=== PATIENT | male | born 1950 | race Hispanic/Latino ===

== ENCOUNTER 2016-07-31 10:41 | Outpatient (CLI) | payer BC ==
[2016-07-31 11:18] LABS: Anion Gap 16 mmol/L; BUN/Creatinine Ratio 17.77; Blood Urea Nitrogen 16 mg/dL (9-20); Calcium 9.1 mg/dL (8.4-10.2); Carbon Dioxide 25 mmol/L (22-30); Chloride 99.4 mmol/L (98-107); Glucose 99 mg/dL (75-100); Sodium 136 mmol/L (137-145)
[2016-07-31 11:38] LABS: Bilirubin,Urine NEG (Negative); Blood,Urine NEG (Negative); Ketones,Urine NEG (Negative); Leukocyte Esterase,Urine NEG (Negative); Mucus,Urine FEW /HPF; Nitrite,Urine NEG (Negative); Protein,Urine <15 mg/dL mg/dL (Negative); Urobilinogen,Urine < 2.0 mg/dL (<2.0); WBC,Urine < 1.0 /HPF (0.0-6.0)
== END 2016-07-31 10:42 | disposition home or self-care (01) ==
LOC: LAB 10:41
PROVIDERS: ATTEND Urology
DX: N40.1 Benign prostatic hyperplasia with lower urinary tract symptoms (principal); R39.12 Poor urinary stream; Z85.51 Personal history of malignant neoplasm of bladder
CPT/HCPCS: 36415; 80048; 81001; 84153

== ENCOUNTER 2017-06-22 10:30 | Outpatient (CLI) | payer BC ==
[2017-06-22 11:07] LABS: Alanine Aminotransferase 17 units/L (7-56); Albumin 4.2 g/dL (3.9-5); BUN/Creatinine Ratio 15; Blood Urea Nitrogen 15 mg/dL (9-20); Calcium 9.1 mg/dL (8.4-10.2); Hemolysis Index 7
== END 2017-06-22 10:31 | disposition home or self-care (01) ==
LOC: LAB 10:30
PROVIDERS: ATTEND Urology
DX: N40.1 Benign prostatic hyperplasia with lower urinary tract symptoms (principal); R39.12 Poor urinary stream; I10 Essential (primary) hypertension; Z85.51 Personal history of malignant neoplasm of bladder
CPT/HCPCS: 36415; 80053; 88112

== ENCOUNTER 2017-06-23 06:41 | Outpatient (CLI) | payer BC ==
--- NOTE | 2017-06-23 08:03 | XRay Report ---
CHEST TWO VIEWS: 06/23/17 06:41:00 CLINICAL: History of malignant neoplasm bladder. COMPARISON: 05/27/17 FINDINGS: Normal heart and pulmonary vasculature. The lungs are normally expanded and clear. No pulmonary nodule or mass. No pleural effusion. Degenerative change in the spine. IMPRESSION: No acute cardiopulmonary process and no evidence of metastatic disease.
--- NOTE | 2017-06-23 14:42 | Cat Scan Report ---
FINAL REPORT EXAM: CT ABDOMEN PELVIS WO/W CON HISTORY: HISTORY OF MALIGNANT NEOPLASM OF BLADDER TECHNIQUE: CT of the abdomen and pelvis without and with IV contrast. Coronal and sagittal reconstructed imaging provided. PRIORS: CT abdomen pelvis June 18, 2015. FINDINGS: ABDOMEN: 4 mm lesion in the left liver on series 4:27 and 5.5 mm subcapsular lesion in the left liver on series 4:34 are unchanged compared the prior in too small to accurately characterize. Heterogeneous low-attenuation liver may represent fatty infiltration or hepatocellular disease. No abnormal enhancement identified. Gallbladder, stomach, spleen, pancreas, and adrenals are unremarkable. Kidneys: Symmetrical cortical enhancement. Subcentimeter hypodensities in both kidneys statistically likely represent cysts but are too small to accurately characterize. More notable cystic lesion in the upper pole of the left kidney is unchanged in size compared to the prior. No hydronephrosis. No nephroureteral stones. No suspicious enhancing lesions. Symmetrical excretion identified. The visualized portions of the ureters are unremarkable. No distinct lesions or abnormal deviations. No dilatation or hydro ureter. IVC is intact. Moderate aortic atherosclerotic disease. No aneurysm. No dissection. No periaortic or retroperitoneal mass or adenopathy. [id number] stool throughout the colon. No wall thickening or inflammatory changes. Sigmoid anastomosis. Terminal ilium is unremarkable. Appendix is normal. Small bowel loops are unremarkable. No obstructive pattern. No free air. No free fluid. Surgical artifacts at the anterior abdominal wall may represent previous hernia repair. Diastasis recti with a broad-based protrusion and superimposed fat containing umbilical hernia. No strangulation. Mesentery is unremarkable. PELVIS: Partially distended bladder is not well evaluated. Series 4:160 in series 6:79 demonstrates a focal area of wall thickening at the anterior bladder wall which is slightly lobulated. Maximal thickness measures 7.2 mm. This was not evident on the prior. Slight irregularity to the wall could be related to incomplete distention. After the presence of contrast no filling defects are noted within the posterior bladder. Heterogeneous enlarged prostate with calcifications is unchanged compared to prior. No pelvic mass or adenopathy. Inguinal regions are unremarkable. Bones: No suspicious osseous lesions on this limited examination of the skeleton. Metastatic disease better evaluated with bone scan. Degenerative changes are in the spine. IMPRESSION: Stable nonspecific hepatic lesions. Hepatocellular disease versus fatty infiltration of the liver. Probable bilateral renal cysts. Similar to prior. Irregularity and slightly asymmetrical bladder or wall thickening. Findings could be related to incomplete distention. Differential diagnosis includes cystitis, bladder outlet obstruction, or tumor. Air CT cystoscopy or cystoscopy may be helpful clinically indicated. Enlarged heterogeneous prostate. Correlation with PSA is recommended if clinically indicated.
== END 2017-06-23 06:42 | disposition home or self-care (01) ==
LOC: CT 06:41
PROVIDERS: ATTEND Urology
DX: K42.9 Umbilical hernia without obstruction or gangrene (principal); N40.0 Benign prostatic hyperplasia without lower urinary tract symptoms; N42.89 Other specified disorders of prostate; K76.9 Liver disease, unspecified; K63.89 Other specified diseases of intestine; I70.0 Atherosclerosis of aorta; M47.894 Other spondylosis, thoracic region; R35.0 Frequency of micturition; Z85.51 Personal history of malignant neoplasm of bladder
CPT/HCPCS: 71046; 74178; Q9967

== ENCOUNTER 2017-08-18 12:13 | Outpatient (CLI) | payer BC ==
[2017-08-18 12:45] LABS: Mean Corpuscular HGB Conc 36 % (32-34); Mean Corpuscular Hemoglobin 32 pg (28-32); Mean Corpuscular Volume 88 fl (84-94); Platelet Count 286 K/mm3 (140-440); Red Blood Count 4.93 M/mm3 (3.65-5.03); Red Cell Distribution Width 12.7 % (13.2-15.2)
[2017-08-18 12:52] LABS: Hematocrit 43.5 % (35.5-45.6); Hemoglobin 15.5 gm/dl (11.8-15.2)
[2017-08-18 13:00] LABS: Alanine Aminotransferase 37 units/L (7-56); Albumin 4.1 g/dL (3.9-5); BUN/Creatinine Ratio 21; Blood Urea Nitrogen 19 mg/dL (9-20); Calcium 9.6 mg/dL (8.4-10.2); Hemolysis Index 12
== END 2017-08-18 12:14 | disposition home or self-care (01) ==
LOC: LAB 12:13
PROVIDERS: ATTEND Family Medicine
DX: I10 Essential (primary) hypertension (principal); T14.8XXA Other injury of unspecified body region, initial encounter; Z87.891 Personal history of nicotine dependence
CPT/HCPCS: 36415; 80053; 85027; 87476

== ENCOUNTER 2017-08-31 08:07 | Outpatient (CLI) | payer BC ==
[2017-08-31 08:31] LABS: Basophils % (Auto) 0.6 % (0.0-1.8); Eosinophils # (Auto) 0.1 K/mm3 (0.0-0.4); Eosinophils % (Auto) 1.7 % (0.0-4.3); Hematocrit 42.2 % (35.5-45.6); Hemoglobin 14.8 gm/dl (11.8-15.2); Lymphocytes # (Auto) 1.8 K/mm3 (1.2-5.4); Lymphocytes % (Auto) 25.9 % (13.4-35.0); Mean Corpuscular HGB Conc 35 % (32-34); Mean Corpuscular Hemoglobin 31 pg (28-32); Mean Corpuscular Volume 89 fl (84-94); Monocytes # (Auto) 0.6 K/mm3 (0.0-0.8); Monocytes % (Auto) 8.8 % (0.0-7.3); Platelet Count 186 K/mm3 (140-440); Red Blood Count 4.77 M/mm3 (3.65-5.03)
== END 2017-08-31 08:08 | disposition home or self-care (01) ==
LOC: LAB 08:07
DX: D72.829 Elevated white blood cell count, unspecified (principal); Z87.891 Personal history of nicotine dependence; I10 Essential (primary) hypertension; E66.9 Obesity, unspecified
CPT/HCPCS: 36415; 85025

== ENCOUNTER 2017-10-19 06:28 | Outpatient (CLI) | payer BC ==
[2017-10-19 07:24] LABS: Alanine Aminotransferase 17 units/L (7-56); Albumin 4.1 g/dL (3.9-5); BUN/Creatinine Ratio 14; Blood Urea Nitrogen 13 mg/dL (9-20); Calcium 9.1 mg/dL (8.4-10.2); Chol/HDL Ratio 4.26 %; HDL Cholesterol 38 mg/dL (40-59); Hemolysis Index 7; LDL Cholesterol,Direct 113 mg/dL (50-130)
[2017-10-19 11:42] LABS: Creatinine,Urine 296.1 mg/dL (0.1-20.0); Microalbumin/Creatinine Ratio 7.7 ug/mg
== END 2017-10-19 06:29 | disposition home or self-care (01) ==
LOC: LAB 06:28
PROVIDERS: ATTEND Family Medicine
DX: I10 Essential (primary) hypertension (principal); E78.5 Hyperlipidemia, unspecified; R73.9 Hyperglycemia, unspecified; Z87.891 Personal history of nicotine dependence
CPT/HCPCS: 36415; 80053; 80061; 82043; 83036

== ENCOUNTER 2017-11-24 07:43 | Outpatient (CLI) | payer BC | END 2017-11-24 07:44 | disposition home or self-care (01) | LOC: LAB 07:43 | PROVIDERS: ATTEND Family Medicine | DX: R73.9 Hyperglycemia, unspecified (principal); I10 Essential (primary) hypertension; E66.9 Obesity, unspecified; Z87.891 Personal history of nicotine dependence | CPT/HCPCS: 36415; 83036 ==

== ENCOUNTER 2018-04-08 06:27 | Day surgery (SDC) | payer BC ==
[2018-04-08] MEDS ORDERED: ANCEF/STERILE WATER 2 GM/20 ML IV NR (07:00)
== END 2018-04-08 06:28 | disposition home or self-care (01) ==
LOC: OR 06:27
PROVIDERS: ATTEND Orthopaedic Surgery
DX: G56.02 Carpal tunnel syndrome, left upper limb (principal); I10 Essential (primary) hypertension; E66.9 Obesity, unspecified; Z68.39 Body mass index [BMI] 39.0-39.9, adult; Z53.8 Procedure and treatment not carried out for other reasons; Z87.891 Personal history of nicotine dependence; Z79.899 Other long term (current) drug therapy; Z72.89 Other problems related to lifestyle; Z79.01 Long term (current) use of anticoagulants; Z85.038 Personal history of other malignant neoplasm of large intestine

== ENCOUNTER 2018-04-15 09:34 | Day surgery (SDC) | payer BC ==
[~2018-04-15 09:34] MED LIST: ANCEF/STERILE WATER 2 GM/20 ML IV NR
[2018-04-15] MEDS ORDERED: VERSED ONE (10:18)
[2018-04-15] MEDS ORDERED: LACTATED RINGERS 1,000 ML ONE (10:19)
[2018-04-15] MEDS ORDERED: NEURONTIN ONE (10:19)
[2018-04-15] MEDS ORDERED: MARCAINE 0.5% INFILTRATI ONE (12:44)
[2018-04-15] MEDS ORDERED: DILAUDID ONE ×2 (12:58→14:03)
[2018-04-15] MEDS ORDERED: XYLOCAINE MPF 2% ONE (12:59)
[2018-04-15] MEDS ORDERED: DIPRIVAN 10 MG/ML IV ONE (12:59)
[2018-04-15] MEDS ORDERED: MARCAINE 0.25% INFILTRATI ONE ×2 (13:22)
[2018-04-15] MEDS ORDERED: NACL 0.9% IR ONE (13:23)
[2018-04-15] MEDS ORDERED: TORADOL ONE (13:36)
[2018-04-15] MEDS ORDERED: ZOFRAN ONE (13:36)
[2018-04-15] MEDS ORDERED: DILAUDID IV PRN (13:59)
[2018-04-15] MEDS ORDERED: PERCOCET 5/325 PO PRN (13:59)
[2018-04-15] MEDS ORDERED: ZOFRAN IV PRN (13:59)
[2018-04-15] MEDS ORDERED: PHENERGAN PO PRN (13:59)
[2018-04-15] MEDS ORDERED: LACTATED RINGERS 1,000 ML IV SCH (14:00)
--- NOTE | 2018-04-15 14:09 | Procedure Note ---
Date of procedure: 04/15/18 Pre-op diagnosis: left carpal tunnel syndrome Post-op diagnosis: same Procedure: left endoscopic carpal tunnel release Procedure The patient was brought to the OR after being given a scalene nerve block and preoperative holding that he was placed on the OR table supine following this the left upper extremity was prepped and draped in the usual sterile manner. A timeout procedure was done to identify the patient and the correct operative site.The left arm was then exsanguinated followed by inflation of the pneumatic tourniquet to 250 mmHg. A volar incision was made along the distal wrist crease using magnification and the incision was taken down through skin and subcutaneoussuperficial flexor sheath was identified using a synovial black top spreader machine operator as well as tissue dilators the carpal canal was entered next the arthroscope was inserted with the wrist in maximum dorsiflexion the transverse carpal ligament was seen the distal extent was appreciated E arthroscope in line with the fourth metacarpal the knife blade assembly was elevated and the transverse carpal ligament was released from distal to proximal the arthroscope was then reinserted the ligament appeared to be released completely following this the scope was then removed the incision was repaired routine postop dressings were applied patient tolerated procedure note there were no complications and was taken to postanesthesia recovery in stable condition Anesthesia: MAC Surgeon: SHAJI ANDERSON Die Stamping Press Operator: ALTAF KITCHEN Estimated blood loss: minimal Pathology: none Condition: stable Disposition: PACU
[2018-04-15] MEDS: DILAUDID IV PRN ×2 (14:17→14:25)
--- NOTE | 2018-04-15 14:25 | Anesthesia Day of Surgery ---
Anesthesia Day of Surgery - Day of Surgery Patient Examined: Yes Patient H&P Reviewed: Yes Patient is NPO: Yes
--- NOTE | 2018-04-15 14:25 | Anesthesia Consultation ---
Anesthesia Consult and Med Hx Date of service: 04/15/18 - Airway Anesthetic Teeth Evaluation: Poor ROM Head & Neck: Adequate Mental/Hyoid Distance: Adequate Mallampati Class: Class III Intubation Access Assessment: Possibly Difficult - Pulmonary Exam CTA: Yes - Cardiac Exam Cardiac Exam: RRR - Pre-Operative Health Status ASA Pre-Surgery Classification: ASA3 Proposed Anesthetic Plan: General (DARREL, HTN, DM) - Pulmonary Hx Smoking: Yes (STOPPED 1995- 1/2PPD X 31 YRS) Hx Sleep Apnea: No (DARREL PRE SCREEN HIGH RISK.) - Cardiovascular System Hx Hypertension: (X 12 YRS) Hx Heart Attack/AMI: No - Central Nervous System Hx Seizures: No CVA: No Hx Psychiatric Problems: No - Endocrine Hx Renal Disease: No Hx Liver Disease: No Hx Thyroid Disease: No Hx Hypothyroidism: No - Other Systems Hx Alcohol Use: Yes (2 BEERS QD) Hx Cancer: Yes (COLORECTAL AND BLADDER IN 2012) Hx Obesity: Yes (morbid, BMI 39.9)
--- NOTE | 2018-04-15 14:31 | Post Anesthesia Evaluation ---
- Post Anesthesia Evaluation Patient Participated: Yes Airway Patent: Yes Stable Respiratory Function: Yes Nausea/Vomiting: No Temp > 96.8F: Yes Pain Manageable: Yes Adequeate Hydration: Yes Anesthesia Complications: No
[2018-04-15 15:27] VITALS: BP 102/50
== END 2018-04-15 15:40 | disposition home or self-care (01) ==
LOC: OR 09:34
PROVIDERS: ATTEND Orthopaedic Surgery
DX: G56.02 Carpal tunnel syndrome, left upper limb (principal); I10 Essential (primary) hypertension; E11.9 Type 2 diabetes mellitus without complications; G47.33 Obstructive sleep apnea (adult) (pediatric); E66.01 Morbid (severe) obesity due to excess calories; Z68.39 Body mass index [BMI] 39.0-39.9, adult; Z79.899 Other long term (current) drug therapy; Z72.89 Other problems related to lifestyle; Z87.891 Personal history of nicotine dependence; Z85.51 Personal history of malignant neoplasm of bladder; Z85.038 Personal history of other malignant neoplasm of large intestine; Z98.890 Other specified postprocedural states
CPT/HCPCS: 29848; 82962; J0690; J1170; J1885; J2250; J2405; J2704; J7120

== ENCOUNTER 2018-07-27 06:23 | Outpatient (CLI) | payer BC ==
[2018-07-27 07:27] LABS: Alanine Aminotransferase 19 units/L (7-56); Albumin 4.3 g/dL (3.9-5); BUN/Creatinine Ratio 13; Blood Urea Nitrogen 13 mg/dL (9-20); Calcium 8.8 mg/dL (8.4-10.2); Hemolysis Index 28
== END 2018-07-27 06:24 | disposition home or self-care (01) ==
LOC: LAB 06:23
PROVIDERS: ATTEND Urology
DX: N40.1 Benign prostatic hyperplasia with lower urinary tract symptoms (principal); R39.12 Poor urinary stream; Z85.51 Personal history of malignant neoplasm of bladder
CPT/HCPCS: 36415; 80053; 84153; 88112

== ENCOUNTER 2018-09-06 06:26 | Outpatient (CLI) | payer BC ==
[2018-09-06 07:07] LABS: Hematocrit 43.1 % (35.5-45.6); Hemoglobin 15.2 gm/dl (11.8-15.2); Mean Corpuscular HGB Conc 35 % (32-34); Mean Corpuscular Volume 90 fl (84-94); Platelet Count 215 K/mm3 (140-440); Red Blood Count 4.78 M/mm3 (3.65-5.03)
[2018-09-06 07:34] LABS: Albumin 4.5 g/dL (3.9-5); Calcium 9.3 mg/dL (8.4-10.2)
[2018-09-06 07:55] LABS: Chol/HDL Ratio 4.46 %
[2018-09-06 12:18] LABS: Creatinine,Urine 94.7 mg/dL (0.1-20.0)
[2018-09-06 12:24] LABS: Microalbumin/Creatinine Ratio 12.6 ug/mg
== END 2018-09-06 06:27 | disposition home or self-care (01) ==
LOC: LAB 06:26
DX: I10 Essential (primary) hypertension (principal); R73.03 Prediabetes; E66.9 Obesity, unspecified
CPT/HCPCS: 36415; 80053; 80061; 82043; 83036; 84153; 84443; 85027

== ENCOUNTER 2018-11-16 09:44 | Outpatient (CLI) | payer BC ==
--- NOTE | 2018-11-16 10:14 | XRay Report ---
CHEST 2 VIEWS INDICATION: J10.89)Influenza due to oth ident influenza virus w oth manifest.. COMPARISON: None FINDINGS: Support devices: None. Heart: Within normal limits. Lungs/pleura: No acute air space or interstitial disease. No pneumothorax. Additional findings: None. IMPRESSION: No acute findings. Signer Name: Andres Sierra Jr, MD Signed: 11/16/2018 10:10 AM Workstation Name: [id number]
== END 2018-11-16 09:45 | disposition home or self-care (01) ==
LOC: XRAY 09:44
PROVIDERS: ATTEND Family Medicine
DX: J10.89 Influenza due to other identified influenza virus with other manifestations (principal); D72.829 Elevated white blood cell count, unspecified; I10 Essential (primary) hypertension; E66.9 Obesity, unspecified
CPT/HCPCS: 71046

== ENCOUNTER 2018-11-30 10:17 | Outpatient (CLI) | payer BC | END 2018-11-30 10:18 | disposition home or self-care (01) | LOC: LAB 10:17 | PROVIDERS: ATTEND Otolaryngology | DX: G53 Cranial nerve disorders in diseases classified elsewhere (principal); I10 Essential (primary) hypertension; E66.9 Obesity, unspecified | CPT/HCPCS: 36415; 84436; 84443; 84479 ==

== ENCOUNTER 2019-01-05 07:15 | Outpatient (CLI) | payer BC ==
--- NOTE | 2019-01-05 08:55 | Cat Scan Report ---
CT ABDOMEN AND PELVIS WITHOUT CONTRAST HISTORY: Z85.51 PERSONAL HISTORY OF MALIGNANT NEOPLASM OF BLADDER COMPARISON: 06/23/2017 TECHNIQUE: Axial CT images were obtained through the abdomen and pelvis without IV contrast. Sagittal and coronal reformatted images. All CT scans at this location are performed using CT dose reduction for ALARA by means of automated exposure control. FINDINGS: CT ABDOMEN: Lung Bases: Clear. Small hiatal hernia. Liver: No significant abnormality. Previously described tiny hypodensities in the left hepatic lobe a re unchanged and probably represent tiny cysts. Biliary: No significant abnormality. Spleen: No significant abnormality. Unenlarged. Pancreas: No significant abnormality. Adrenals: No significant abnormality. Kidneys: No significant abnormality. Lymphatics: No lymphadenopathy. Vasculature: Mild distal aortic calcifications. No aneurysm. Bowel/Peritoneum: No significant abnormality. No free air. No free fluid. Normal appendix. Surgical s uture line in the sigmoid region is noted, correlate with history. CT PELVIS: : The bladder is partially distended but unremarkable. There is no obvious focal bladder wall mass or bladder wall thickening on noncontrast CT. The distal ureters are not dilated. The prostate gland measures 5 cm in diameter. Osseous Structures: Intact. Mild thoracolumbar spondylosis is noted. No suspicious bony lesion is det ected. Additional Findings: Previous ventral wall hernia repair is noted and appears intact. IMPRESSION: No evidence for metastatic disease to the abdomen or pelvis on noncontrast CT. The bladder is unremar kable on noncontrast exam. No visceral lesion or castro disease is appreciated. Signer Name: Andres Sierra Jr, MD Signed: 01/05/2019 8:51 AM Workstation Name: [id number]
== END 2019-01-05 07:16 | disposition home or self-care (01) ==
LOC: CT 07:15
PROVIDERS: ATTEND Urology
DX: Z85.51 Personal history of malignant neoplasm of bladder (principal); Z87.891 Personal history of nicotine dependence
CPT/HCPCS: 74176

== ENCOUNTER 2019-02-28 06:28 | Outpatient (CLI) | payer BC ==
[2019-02-28 06:50] LABS: Hematocrit 42.1 % (35.5-45.6); Hemoglobin 14.5 gm/dl (11.8-15.2); Mean Corpuscular HGB Conc 34 % (32-34); Mean Corpuscular Volume 90 fl (84-94); Platelet Count 189 K/mm3 (140-440); Red Blood Count 4.67 M/mm3 (3.65-5.03); Red Cell Distribution Width 13.1 % (13.2-15.2)
[2019-02-28 07:39] LABS: Alanine Aminotransferase 19 units/L (7-56); Albumin 4.2 g/dL (3.9-5); BUN/Creatinine Ratio 12; Blood Urea Nitrogen 12 mg/dL (9-20); Calcium 9.3 mg/dL (8.4-10.2)
[2019-02-28 07:40] LABS: HDL Cholesterol 41 mg/dL (40-59); Hemolysis Index 2; LDL Cholesterol,Direct 123 mg/dL (50-130)
[2019-02-28 11:58] LABS: Creatinine,Urine 207.6 mg/dL (0.1-20.0); Microalbumin/Creatinine Ratio 7.2 ug/mg
== END 2019-02-28 06:29 | disposition home or self-care (01) ==
LOC: LAB 06:28
PROVIDERS: ATTEND Family Medicine
DX: R73.03 Prediabetes (principal); C18.9 Malignant neoplasm of colon, unspecified; C47.9 Malignant neoplasm of peripheral nerves and autonomic nervous system, unspecified; I10 Essential (primary) hypertension
CPT/HCPCS: 36415; 80053; 80061; 82043; 83036; 84153; 84443; 85027

== ENCOUNTER 2019-11-29 06:24 | Outpatient (CLI) | payer BC, MEDICARE ==
[2019-11-29 07:18] LABS: Alanine Aminotransferase 17 units/L (7-56); Albumin 4.4 g/dL (3.9-5); BUN/Creatinine Ratio 16; Blood Urea Nitrogen 16 mg/dL (9-20); Calcium 9.6 mg/dL (8.4-10.2); HDL Cholesterol 56 mg/dL (40-59); Hemolysis Index 4; LDL Cholesterol,Direct 107 mg/dL (50-130)
== END 2019-11-29 06:25 | disposition home or self-care (01) ==
LOC: LAB 06:24
DX: R73.03 Prediabetes (principal); I10 Essential (primary) hypertension
CPT/HCPCS: 36415; 80053; 80061; 83036; 84443

== ENCOUNTER 2020-02-29 06:23 | Outpatient (CLI) | payer BC, MEDICARE ==
[2020-02-29 06:48] LABS: Hematocrit 41.3 % (35.5-45.6); Hemoglobin 14.6 gm/dl (11.8-15.2); Mean Corpuscular HGB Conc 35 % (32-34); Mean Corpuscular Volume 90 fl (84-94); Platelet Count 242 K/mm3 (140-440); Red Blood Count 4.59 M/mm3 (3.65-5.03); Red Cell Distribution Width 12.6 % (13.2-15.2)
[2020-02-29 07:11] LABS: Alanine Aminotransferase 18 units/L (7-56); BUN/Creatinine Ratio 13; Blood Urea Nitrogen 12 mg/dL (9-20); Calcium 9.4 mg/dL (8.4-10.2); Chol/HDL Ratio 3.87 %; HDL Cholesterol 41 mg/dL (40-59); Hemolysis Index 3; LDL Cholesterol,Direct 111 mg/dL (50-130)
[2020-02-29 10:29] LABS: Creatinine,Urine 134.5 mg/dL (0.1-20.0)
[2020-02-29 10:30] LABS: Microalbumin/Creatinine Ratio 8.9 ug/mg
== END 2020-02-29 06:24 | disposition home or self-care (01) ==
LOC: LAB 06:23
PROVIDERS: ATTEND Family Medicine
DX: C67.9 Malignant neoplasm of bladder, unspecified (principal); C18.9 Malignant neoplasm of colon, unspecified; I10 Essential (primary) hypertension; R73.03 Prediabetes
CPT/HCPCS: 36415; 80053; 80061; 82043; 83036; 84153; 84443; 85027

== ENCOUNTER 2020-03-30 20:44 | Inpatient (IN) | payer BC, MEDICARE ==
[2020-03-30] MEDS ORDERED: ACETAMINOPHEN 500 MG TAB PO ONE (20:52)
[2020-03-30] MEDS ORDERED: dexAMETHasone 20 MG/5 ML VIAL IV ONE (20:53)
[2020-03-30] MEDS ORDERED: IPRATROPIUM/ALBUTEROL SULFATE 3 ML AMPUL.NEB IH ONE (20:53)
[2020-03-30] MEDS ORDERED: SODIUM CHLORIDE 0.9% 1000 ML 1,000 ML IV ONE (20:53)
[2020-03-30 21:20] LABS: Basophils % (Auto) 0.2 % (0.0-1.8); Hemoglobin 14.5 gm/dl (11.8-15.2); Lymphocytes # (Auto) 1.2 K/mm3 (1.2-5.4); Lymphocytes % (Auto) 8.2 % (13.4-35.0); Mean Corpuscular HGB Conc 34 % (32-34); Mean Corpuscular Volume 91 fl (84-94); Monocytes # (Auto) 0.9 K/mm3 (0.0-0.8); Monocytes % (Auto) 6.6 % (0.0-7.3); Platelet Count 227 K/mm3 (140-440); Red Blood Count 4.72 M/mm3 (3.65-5.03); Red Cell Distribution Width 12.6 % (13.2-15.2)
[2020-03-30 21:41] LABS: Alanine Aminotransferase 36 units/L (7-56); Albumin 3.8 g/dL (3.9-5); BUN/Creatinine Ratio 22; Blood Urea Nitrogen 22 mg/dL (9-20); Calcium 9.5 mg/dL (8.4-10.2); Hemolysis Index 23
--- NOTE | 2020-03-30 21:46 | Emergency Department Report ---
ED General Adult HPI - General Chief complaint: Dyspnea/Respdistress Stated complaint: COVID/DIFFICULTY BREATHING Time Seen by Provider: 03/30/20 21:27 Source: patient Mode of arrival: Ambulatory Limitations: No Limitations - History of Present Illness Initial comments: Patient is a 69-year-old male with past medical history of hypertension, BPH, who presents emergency room for evaluation of worsening shortness of breath. Patient states that he was diagnosed with COVID-19 on Thursday past. He was prescribed prednisone, zpack, tessalon pearles and baclofen. He states however today his symptoms got progressively worse. When probed he states his symptoms include shortness of breath, cough, fever, headache and dyspnea on exertion. He also endorses loss of taste and smell. - Related Data Home Medications Medication Instructions Recorded Confirmed Last Taken Tamsulosin [Flomax] 0.4 mg PO BID 03/13/16 09/23/19 09/25/19 Montelukast [Singulair] 10 mg PO QPM 04/08/18 09/19/19 09/25/19 Finasteride [Proscar] 5 mg PO QDAY 09/23/19 09/23/19 09/25/19 Irbesartan [Avapro] 150 mg PO DAILY 09/23/19 09/23/19 09/25/19 amLODIPine [Norvasc] 2.5 mg PO DAILY 09/23/19 09/23/19 09/25/19 Allergies Allergy/AdvReac Type Severity Reaction Status Date / Time No Known Allergies Allergy Verified 03/19/18 13:20 ED Review of Systems ROS: Stated complaint: COVID/DIFFICULTY BREATHING Other details as noted in HPI Constitutional: chills, fever Eyes: denies: eye pain, eye discharge, vision change ENT: denies: ear pain, throat pain Respiratory: cough, shortness of breath, SOB with exertion, SOB at rest. denies: wheezing Cardiovascular: denies: chest pain, palpitations Endocrine: no symptoms reported Gastrointestinal: denies: abdominal pain, nausea, diarrhea Genitourinary: denies: urgency, dysuria Musculoskeletal: denies: back pain, joint swelling, arthralgia Skin: denies: rash, lesions Neurological: headache. denies: weakness, paresthesias Psychiatric: denies: anxiety, depression Hematological/Lymphatic: denies: easy bleeding, easy bruising ED Past Medical Hx - Past Medical History Hx Hypertension: Yes Hx Heart Attack/AMI: No Hx Congestive Heart Failure: No Hx Diabetes: Yes ("PRE DIABETIC"- NO MEDS) Hx GERD: No Hx Liver Disease: No Hx Renal Disease: No Hx of Cancer: Yes (colon, bladder) Hx Sickle Cell Disease: No Hx Headaches / Migraines: No Hx Seizures: No Hx Asthma: No Hx COPD: No Hx Tuberculosis: Yes (BORDERLINE POSITIVE,NO [place]) Hx HIV: No - Surgical History Past Surgical History?: Yes Additional Surgical History: lung biopsy, L rotator cuff - Social History Smoking Status: Former Smoker Substance Use Type: Alcohol - Medications Home Medications: Home Medications Medication Instructions Recorded Confirmed Last Taken Type Tamsulosin [Flomax] 0.4 mg PO BID 03/13/16 09/23/19 09/25/19 History Montelukast [Singulair] 10 mg PO QPM 04/08/18 09/19/19 09/25/19 History Finasteride [Proscar] 5 mg PO QDAY 09/23/19 09/23/19 09/25/19 History Irbesartan [Avapro] 150 mg PO DAILY 09/23/19 09/23/19 09/25/19 History amLODIPine [Norvasc] 2.5 mg PO DAILY 09/23/19 09/23/19 09/25/19 History ED Physical Exam - General Limitations: No Limitations General appearance: alert, in no apparent distress - Head Head exam: Present: atraumatic, normocephalic - Eye Eye exam: Present: normal appearance - ENT ENT exam: Present: mucous membranes moist - Neck Neck exam: Present: normal inspection - Respiratory Respiratory exam: Present: wheezes. Absent: respiratory distress - Cardiovascular Cardiovascular Exam: Present: regular rate, normal rhythm. Absent: systolic murmur, diastolic murmur, rubs, gallop - GI/Abdominal GI/Abdominal exam: Present: soft, normal bowel sounds - Rectal Rectal exam: Present: deferred - Extremities Exam Extremities exam: Present: normal inspection - Back Exam Back exam: Present: normal inspection - Neurological Exam Neurological exam: Present: alert, oriented X3 - Psychiatric Psychiatric exam: Present: normal affect, normal mood - Skin Skin exam: Present: warm, dry, intact, normal color. Absent: rash ED Course Vital Signs 03/30/20 20:48 Temperature 100.3 F H Pulse Rate 91 H Respiratory 18 Rate Blood Pressure 173/78 O2 Sat by Pulse 94 Oximetry - Reevaluation(s) Reevaluation #1: 03/30/20 22:39 Patient's work-up so far demonstrates a chest x-ray with signs of early pneumonia, elevated ferritin, elevated LDH ,elevated D-dimer and a leukocytosis. Patient ABG is pending. CT angio chest ordered to rule out PE. Patient will likely require admission. Reevaluation #2: 03/30/20 22:55 Dr. Bocanegra admitted. Bridge order placed. ED Medical Decision Making - Lab Data Result diagrams: 03/30/20 21:02 03/30/20 21:02 Abnormal Lab Results 03/30/20 03/30/20 03/30/20 21:02 21:02 21:02 WBC 14.3 H RBC 4.72 Hgb 14.5 Hct 43.0 MCV 91 MCH 31 MCHC 34 RDW 12.6 L Plt Count 227 Lymph % (Auto) 8.2 L [place] % (Auto) 6.6 Eos % (Auto) 0.0 Baso % (Auto) 0.2 Lymph # (Auto) 1.2 [place] # (Auto) 0.9 H Eos # (Auto) 0.0 Baso # (Auto) 0.0 Seg Neutrophils % 85.0 H Seg Neutrophils # 12.1 H D-Dimer Sodium 136 L Potassium 4.3 Chloride 100.1 Carbon Dioxide 24 Anion Gap 16 BUN 22 H Creatinine 1.0 Estimated GFR > 60 BUN/Creatinine Ratio 22 Glucose 115 H Lactic Acid 0.90 Calcium 9.5 Ferritin Total Bilirubin 0.90 AST 27 ALT 36 Alkaline Phosphatase 45 Lactate Dehydrogenase Troponin T < 0.010 NT-Pro-B Natriuret Pep 19.98 Total Protein 7.7 Albumin 3.8 L Albumin/Globulin Ratio 1.0 03/30/20 03/30/20 03/30/20 21:31 21:31 21:58 WBC RBC Hgb Hct MCV MCH MCHC RDW Plt Count Lymph % (Auto) [place] % (Auto) Eos % (Auto) Baso % (Auto) Lymph # (Auto) [place] # (Auto) Eos # (Auto) Baso # (Auto) Seg Neutrophils % Seg Neutrophils # D-Dimer 397.35 H Sodium Potassium Chloride Carbon Dioxide Anion Gap BUN Creatinine Estimated GFR BUN/Creatinine Ratio Glucose Lactic Acid Calcium Ferritin 1074.0 H Total Bilirubin AST ALT Alkaline Phosphatase Lactate Dehydrogenase 266 H Troponin T NT-Pro-B Natriuret Pep Total Protein Albumin Albumin/Globulin Ratio Lab Results 03/30/20 03/30/20 03/30/20 Range/Units 21:02 21:02 21:02 WBC 14.3 H (4.5-11.0) K/mm3 RBC 4.72 (3.65-5.03) M/mm3 Hgb 14.5 (11.8-15.2) gm/dl Hct 43.0 (35.5-45.6) % MCV 91 (84-94) fl MCH 31 (28-32) pg MCHC 34 (32-34) % RDW 12.6 L (13.2-15.2) % Plt Count 227 (140-440) K/mm3 Lymph % (Auto) 8.2 L (13.4-35.0) % [place] % (Auto) 6.6 (0.0-7.3) % Eos % (Auto) 0.0 (0.0-4.3) % Baso % (Auto) 0.2 (0.0-1.8) % Lymph # (Auto) 1.2 (1.2-5.4) K/mm3 [place] # (Auto) 0.9 H (0.0-0.8) K/mm3 Eos # (Auto) 0.0 (0.0-0.4) K/mm3 Baso # (Auto) 0.0 (0.0-0.1) K/mm3 Seg Neutrophils % 85.0 H (40.0-70.0) % Seg Neutrophils # 12.1 H (1.8-7.7) K/mm3 D-Dimer (0-234) ng/mlDDU Sodium 136 L (137-145) mmol/L Potassium 4.3 (3.6-5.0) mmol/L Chloride 100.1 (98-107) mmol/L Carbon Dioxide 24 (22-30) mmol/L Anion Gap 16 mmol/L BUN 22 H (9-20) mg/dL Creatinine 1.0 (0.8-1.3) mg/dL Estimated GFR > 60 ml/min BUN/Creatinine Ratio 22 % Glucose 115 H (75-100) mg/dL Lactic Acid 0.90 (0.7-2.0) mmol/L Calcium 9.5 (8.4-10.2) mg/dL Ferritin (30.0-300.0) ng/mL Total Bilirubin 0.90 (0.1-1.2) mg/dL AST 27 (5-40) units/L ALT 36 (7-56) units/L Alkaline Phosphatase 45 (35-129) units/L Lactate Dehydrogenase (91-180) units/L Troponin T < 0.010 (0.00-0.029) ng/mL NT-Pro-B Natriuret Pep 19.98 (0-900) pg/mL Total Protein 7.7 (6.3-8.2) g/dL Albumin 3.8 L (3.9-5) g/dL Albumin/Globulin Ratio 1.0 % 03/30/20 03/30/20 03/30/20 Range/Units 21:31 21:31 21:58 WBC (4.5-11.0) K/mm3 RBC (3.65-5.03) M/mm3 Hgb (11.8-15.2) gm/dl Hct (35.5-45.6) % MCV (84-94) fl MCH (28-32) pg MCHC (32-34) % RDW (13.2-15.2) % Plt Count (140-440) K/mm3 Lymph % (Auto) (13.4-35.0) % [place] % (Auto) (0.0-7.3) % Eos % (Auto) (0.0-4.3) % Baso % (Auto) (0.0-1.8) % Lymph # (Auto) (1.2-5.4) K/mm3 [place] # (Auto) (0.0-0.8) K/mm3 Eos # (Auto) (0.0-0.4) K/mm3 Baso # (Auto) (0.0-0.1) K/mm3 Seg Neutrophils % (40.0-70.0) % Seg Neutrophils # (1.8-7.7) K/mm3 D-Dimer 397.35 H (0-234) ng/mlDDU Sodium (137-145) mmol/L Potassium (3.6-5.0) mmol/L Chloride (98-107) mmol/L Carbon Dioxide (22-30) mmol/L Anion Gap mmol/L BUN (9-20) mg/dL Creatinine (0.8-1.3) mg/dL Estimated GFR ml/min BUN/Creatinine Ratio % Glucose (75-100) mg/dL Lactic Acid (0.7-2.0) mmol/L Calcium (8.4-10.2) mg/dL Ferritin 1074.0 H (30.0-300.0) ng/mL Total Bilirubin (0.1-1.2) mg/dL AST (5-40) units/L ALT (7-56) units/L Alkaline Phosphatase (35-129) units/L Lactate Dehydrogenase 266 H (91-180) units/L Troponin T (0.00-0.029) ng/mL NT-Pro-B Natriuret Pep (0-900) pg/mL Total Protein (6.3-8.2) g/dL Albumin (3.9-5) g/dL Albumin/Globulin Ratio % - Radiology Data Radiology results: report reviewed, image reviewed - Medical Decision Making Patient is a 69-year-old male with known COVID-19 who presents emergency room with concerns for worsening symptoms. Consideration was given to newly developed pneumonia and he was evaluated for signs of hypoxia. Labs and imaging were ordered from triage or EMR. Low-grade fever noted on intake vital signs. Physical exam remarkable for right-sided wheezing. Patient was given breathing treatment, steroids and IV fluids from triage. Dispel pending ED work-up and clinical improvement. Critical care attestation.: If time is entered above; I have spent that time in minutes in the direct care of this critically ill patient, excluding procedure time. ED Disposition Clinical Impression: COVID-19, Pneumonia due to COVID-19 virus, Hypoxia Disposition: OP ADMIT IP TO THIS HOSP Is pt being admited?: Yes Does the pt Need Aspirin: No Condition: Stable Instructions: Bacterial Pneumonia (ED), Hypoxia, COVID-19 Referrals: YESSI RAMIREZ MD [Primary Care Provider] - 3-5 Days Time of Disposition: 22:56
--- NOTE | 2020-03-30 22:16 | XRay Report ---
CHEST 2 VIEWS INDICATION / CLINICAL INFORMATION: MAIN. COMPARISON: 09/19/2019 FINDINGS: SUPPORT DEVICES: None. HEART / MEDIASTINUM: No significant abnormality. LUNGS / PLEURA: Mild subtle right lower lung irregular opacities that are visualized on lateral view and projecting over the right lower and middle lobes. No pneumothorax. ADDITIONAL FINDINGS: No significant additional findings. IMPRESSION: 1. Mild right basilar opacities possibly representing aspiration or developing pneumonia (atypical/vi ral included). Recommend clinical correlation and continued follow-up as warranted. Signer Name: Camron Aaron MD Signed: 03/30/2020 10:12 PM Workstation Name: [id number]
[2020-03-30] MEDS ORDERED: AZITHROMYCIN 500 MG in SODIUM CHLORIDE 0.9% 250ML 250 ML IV ONE (22:51)
[2020-03-30] MEDS ORDERED: LIDOCAINE-MPF (1%) 10 MG/1 ML VIAL 5 ML INFILTRATI ONE (22:51)
[2020-03-30] MEDS ORDERED: cefTRIAXone/NS 1 GM/50 ML 1 GM/50 ML BAG IV ONE (23:00)
[2020-03-30 23:12] LABS: ABG Base Excess -0.9 mmol/L (-2.0-3.0); ABG Methemoglobin 0.5 % (0.0-1.5); ABG PCO2 36.1 mm Hg; ABG PH 7.422 pH Units (7.350-7.450); ABG PO2 63.3 mm Hg (80.0-90.0)
[2020-03-30] MEDS ORDERED: ONDANSETRON 4 MG/2 ML INJ IV PRN (23:27)
[2020-03-30] MEDS ORDERED: MAGNESIUM HYDROXIDE (MOM) ORAL LIQD UDC PO PRN (23:27)
[2020-03-30] MEDS ORDERED: MORPHINE 2 MG/1 ML INJ IV PRN (23:27)
--- NOTE | 2020-03-30 23:36 | History and Physical Report ---
History of Present Illness Date of examination: 03/30/20 Date of admission: 03/30/20 22:54 Chief complaint: Difficulty Breathing History of present illness: 69-year-old male with known history of hypertension and BPH presenting to the emergency room today complaining of worsening shortness of breath. Patient was diagnosed with Covid less than a week ago and was prescribed Z-Bon, prednisone and Tessalon pearles. He was encouraged to report to the emergency room if his condition gets worse. Patient indicates he has been having increased shortness of breath, cough, fever, difficulty breathing and headache. He has also had loss of taste and smell. Upon arrival in the emergency room his O2 saturation was 91%. Work-up today, chest x-ray reveals:Mild right basilar opacities possibly representing aspiration or developing pneumonia. He has a leukocytosis of 14. Patient has been placed on empiric IV antibiotics. He has also been placed on isolation precautions for COVID-19. Past History Past Medical History: hypertension, other (history of bladder ca, ,Colon ca.) Past Surgical History: Other (Left rotator cuff surgery,left lung biopsy) Social history: smoking (Former smoker), alcohol abuse Family history: no significant family history Medications and Allergies Allergies Allergy/AdvReac Type Severity Reaction Status Date / Time No Known Allergies Allergy Verified 03/19/18 13:20 Home Medications Medication Instructions Recorded Confirmed Last Taken Type Tamsulosin [Flomax] 0.4 mg PO BID 03/13/16 09/23/19 09/25/19 History Montelukast [Singulair] 10 mg PO QPM 04/08/18 09/19/19 09/25/19 History Finasteride [Proscar] 5 mg PO QDAY 09/23/19 09/23/19 09/25/19 History Irbesartan [Avapro] 150 mg PO DAILY 09/23/19 09/23/19 09/25/19 History amLODIPine [Norvasc] 2.5 mg PO DAILY 09/23/19 09/23/19 09/25/19 History Active Meds: Active Medications Acetaminophen (Acetaminophen 325 Mg Tab) 650 mg PO Q4H PRN PRN Reason: Pain MILD(1-3)/Fever >100.5/CASAS Azithromycin 500 mg/ Sodium (Chloride) 250 mls @ 250 mls/hr IV ONCE ONE; Protocol Stop: 03/30/20 23:50 Ceftriaxone Sodium (Rocephin/Ns 2 Gm/100 Ml) 2 gm in 100 mls @ 200 mls/hr IV Q24H ANGEL; Protocol Azithromycin 500 mg/ Sodium (Chloride) 250 mls @ 250 mls/hr IV Q24H ANGEL; Protocol Magnesium Hydroxide (Magnesium Hydroxide (Mom) Oral Liqd Udc) 30 ml PO Q4H PRN PRN Reason: Constipation Morphine Sulfate (Morphine 2 Mg/1 Ml Inj) 2 mg IV Q4H PRN PRN Reason: Pain, Moderate (4-6) Ondansetron HCl (Ondansetron 4 Mg/2 Ml Inj) 4 mg IV Q8H PRN PRN Reason: Nausea And Vomiting Sodium Chloride (Sodium Chloride 0.9% 10 Ml Flush Syringe) 10 ml IV BID ANGEL Sodium Chloride (Sodium Chloride 0.9% 10 Ml Flush Syringe) 10 ml IV PRN PRN PRN Reason: LINE FLUSH Review of Systems Constitutional: fever, chills Ears, nose, mouth and throat: no nasal congestion, no sore throat Cardiovascular: no chest pain, no palpitations Respiratory: cough, shortness of breath Gastrointestinal: no abdominal pain, no nausea, no vomiting, no diarrhea Genitourinary Male: no dysuria, no hematuria, no flank pain, no nocturia Musculoskeletal: no neck pain, no low back pain Integumentary: no rash, no pruritis Neurological: no headaches, no confusion Psychiatric: no anxiety, no depression Exam - Constitutional Vitals: Temp Pulse Resp BP Pulse Ox 100.3 F H 90 20 173/78 94 03/30/20 20:48 03/30/20 23:10 03/30/20 23:10 03/30/20 20:48 03/30/20 20:48 General appearance: Present: no acute distress, well-nourished - EENT Eyes: Present: PERRL, EOM intact. Absent: scleral icterus ENT: hearing intact, clear oral mucosa, dentition normal - Neck Neck: Present: supple, normal ROM - Respiratory Respiratory effort: normal Respiratory: bilateral: diminished - Cardiovascular Rhythm: regular Heart Sounds: Present: S1 & S2. Absent: gallop, systolic murmur, diastolic murmur, rub - Extremities Extremities: no ischemia, pulses intact, pulses symmetrical, No edema, Full ROM Peripheral Pulses: within normal limits - Abdominal General gastrointestinal: Present: soft, non-tender, non-distended, normal bowel sounds. Absent: mass - Integumentary Integumentary: Present: clear, warm, dry. Absent: rash - Musculoskeletal Musculoskeletal: strength equal bilaterally - Psychiatric Psychiatric: appropriate mood/affect, intact judgment & insight, memory intact, cooperative - Neurologic Neurologic: CNII-XII intact, no focal deficits, moves all extremities HEART Score - HEART Score Troponin: Troponin T < 0.010 ng/mL (0.00-0.029) 03/30/20 21:02 Results - Labs CBC & Chem 7: 03/30/20 21:02 03/31/20 00:49 Labs: Abnormal lab results 03/30/20 03/30/20 03/30/20 Range/Units 21:02 21:02 21:31 WBC 14.3 H (4.5-11.0) K/mm3 RDW 12.6 L (13.2-15.2) % Lymph % (Auto) 8.2 L (13.4-35.0) % [place] # (Auto) 0.9 H (0.0-0.8) K/mm3 Seg Neutrophils % 85.0 H (40.0-70.0) % Seg Neutrophils # 12.1 H (1.8-7.7) K/mm3 D-Dimer (0-234) ng/mlDDU ABG pO2 (80.0-90.0) mm Hg ABG O2 Saturation (95.0-99.0) % Oxyhemoglobin (95.0-99.0) % Sodium 136 L (137-145) mmol/L BUN 22 H (9-20) mg/dL Glucose 115 H (75-100) mg/dL Ferritin 1074.0 H (30.0-300.0) ng/mL Lactate Dehydrogenase (91-180) units/L Albumin 3.8 L (3.9-5) g/dL 03/30/20 03/30/20 03/30/20 Range/Units 21:31 21:58 23:00 WBC (4.5-11.0) K/mm3 RDW (13.2-15.2) % Lymph % (Auto) (13.4-35.0) % [place] # (Auto) (0.0-0.8) K/mm3 Seg Neutrophils % (40.0-70.0) % Seg Neutrophils # (1.8-7.7) K/mm3 D-Dimer 397.35 H (0-234) ng/mlDDU ABG pO2 63.3 L (80.0-90.0) mm Hg ABG O2 Saturation 94.0 L (95.0-99.0) % Oxyhemoglobin 92.1 L (95.0-99.0) % Sodium (137-145) mmol/L BUN (9-20) mg/dL Glucose (75-100) mg/dL Ferritin (30.0-300.0) ng/mL Lactate Dehydrogenase 266 H (91-180) units/L Albumin (3.9-5) g/dL Assessment and Plan - Patient Problems (1) Pneumonia due to COVID-19 virus Current Visit: Yes Status: Acute Plan to address problem: Patient placed on isolation precautions. He has been started on empiric IV antibiotics and steroid. We will place consult to infectious disease for further recommendations. (2) Hypoxia Current Visit: Yes Status: Acute Plan to address problem: Possibly secondary to the pneumonia. We will keep O2 saturation greater or equal to 94%. (3) DVT prophylaxis Current Visit: Yes Status: Acute Plan to address problem: Patient placed on subcutaneous Lovenox. (4) Full code status Current Visit: Yes Status: Acute Plan to address problem: Patient is a full code.
--- NOTE | 2020-03-31 00:13 | Cat Scan Report ---
CT angio chest INDICATION / CLINICAL INFORMATION: elevated ddimer. TECHNIQUE: Axial CT images were obtained through the chest after injection of IV contrast. 3 plane MIP and/or 3D reconstructions were produced. All CT scans at this location are performed using CT dose reduction f or ALARA by means of automated exposure control. COMPARISON: None available. FINDINGS: PULMONARY ARTERIES: No pulmonary emboli. HEART: Small quantity of multivessel coronary atherosclerosis. MEDIASTINUM / KYLIE: No significant abnormality. LUNGS: Groundglass opacities in all 5 lobes of the lung with a peripheral predilection. No pleural ef fusion. No pneumothorax. ADDITIONAL FINDINGS: Small sliding-type hiatal hernia.. UPPER ABDOMEN: No acute findings. SKELETAL STRUCTURES: No significant osseous abnormality. IMPRESSION: 1. No CT evidence for pulmonary embolism. 2. Classic imaging features of Covid pneumonia are present. Signer Name: Godfrey Lerner MD Signed: 03/31/2020 12:09 AM Workstation Name: [id number]
[2020-03-31 03:25] LABS: C-Reactive Protein 13.8 mg/dL (0.00-1.30)
[2020-03-31 05:44] LABS: Hematocrit 37.9 % (35.5-45.6); Hemoglobin 13.4 gm/dl (11.8-15.2); Mean Corpuscular HGB Conc 36 % (32-34); Mean Corpuscular Volume 90 fl (84-94); Platelet Count 203 K/mm3 (140-440); Red Cell Distribution Width 12.4 % (13.2-15.2)
[2020-03-31 05:54] LABS: INR 1.13 (0.87-1.13)
[2020-03-31 06:25] LABS: BUN/Creatinine Ratio 23; Blood Urea Nitrogen 21 mg/dL (9-20); Calcium 9.1 mg/dL (8.4-10.2); Hemolysis Index 0
[2020-03-31 07:08] LABS: Anisocytosis 1+; Platelet Estimate Consistent w Auto; Total Cells Counted 100
[2020-03-31] MEDS ORDERED: cefTRIAXone/NS 2 GM/100 ML 2 GM/100 ML BAG IV SCH (10:00)
--- NOTE | 2020-03-31 12:39 | Consultation ---
History of Present Illness - Reason for Consult Consult date: 03/31/20 - History of Present Illness 6-year-old man past medical history hypertension, BPH, bladder cancer, colon cancer admitted to hospital complaining of shortness of breath. He notes that he was diagnosed with COVID-19 6 days ago, not time was given azithromycin, prednisone and Tessalon by his primary care doctor. Since that time he has been having increasing shortness of breath, cough, fever, as such he came to the hospital. O2 sats on presentation the hospital were 91%. Afebrile with a T-max of 100.3 with a white count of 14. Procalcitonin is normal as is renal function. He is currently on ceftriaxone and azithromycin. No cultures available for review. Imaging personally reviewed: Chest CTA: No PE. Bilateral groundglass. Review of systems: Deferred due to PPE conservation strategy. Past History Past Medical History: hypertension, other (history of bladder ca, ,Colon ca.) Past Surgical History: Other (Left rotator cuff surgery,left lung biopsy) Social history: smoking (Former smoker), alcohol abuse Family history: no significant family history Medications and Allergies Allergies Allergy/AdvReac Type Severity Reaction Status Date / Time No Known Allergies Allergy Verified 03/19/18 13:20 Home Medications Medication Instructions Recorded Confirmed Last Taken Type Tamsulosin [Flomax] 0.4 mg PO BID 03/13/16 03/31/20 09/25/19 History Montelukast [Singulair] 10 mg PO QPM 04/08/18 03/31/20 09/25/19 History Finasteride [Proscar] 5 mg PO QDAY 09/23/19 03/31/20 09/25/19 History Irbesartan [Avapro] 150 mg PO DAILY 09/23/19 03/31/20 09/25/19 History amLODIPine [Norvasc] 2.5 mg PO DAILY 09/23/19 03/31/20 09/25/19 History Baclofen 5 mg PO DAILY 03/31/20 03/31/20 Unknown History Benzonatate 200 mg PO DAILY 03/31/20 03/31/20 Unknown History Active Meds: Active Medications Acetaminophen (Acetaminophen 325 Mg Tab) 650 mg PO Q4H PRN PRN Reason: Pain MILD(1-3)/Fever >100.5/CASAS Azithromycin (Azithromycin 250 Mg Tab) 500 mg PO Q24H ANGEL Enoxaparin Sodium (Enoxaparin 40 Mg/0.4 Ml Inj) 40 mg SUB-Q QDAY@2200 ANGEL; Protocol Ceftriaxone Sodium (Rocephin/Ns 2 Gm/100 Ml) 2 gm in 100 mls @ 200 mls/hr IV Q24H ANGEL; Protocol Last Admin: 03/31/20 10:33 Dose: 200 mls/hr Documented by: Magnesium Hydroxide (Magnesium Hydroxide (Mom) Oral Liqd Udc) 30 ml PO Q4H PRN PRN Reason: Constipation Morphine Sulfate (Morphine 2 Mg/1 Ml Inj) 2 mg IV Q4H PRN PRN Reason: Pain, Moderate (4-6) Ondansetron HCl (Ondansetron 4 Mg/2 Ml Inj) 4 mg IV Q8H PRN PRN Reason: Nausea And Vomiting Sodium Chloride (Sodium Chloride 0.9% 10 Ml Flush Syringe) 10 ml IV BID [facility] Last Admin: 03/31/20 10:33 Dose: 10 ml Documented by: Sodium Chloride (Sodium Chloride 0.9% 10 Ml Flush Syringe) 10 ml IV PRN PRN PRN Reason: LINE FLUSH Physical Examination - Physical Exam Narrative exam: Physical exam deferred due to PPE conservation strategy. Please refer to primary team's note. - Constitutional Vitals: Vital Signs Temp Pulse Resp BP Pulse Ox 100.3 F H 60 14 131/66 98 03/30/20 20:48 03/31/20 09:00 03/31/20 09:00 03/31/20 12:00 03/31/20 12:00 Temperature -Last 24 Hours Temperature 100.3 F Results - Labs CBC & Chem 7: 03/31/20 05:13 03/31/20 05:13 Labs: Abnormal lab results 03/30/20 03/30/20 03/30/20 Range/Units 21:02 21:02 21:31 WBC 14.3 H (4.5-11.0) K/mm3 MCHC (32-34) % RDW 12.6 L (13.2-15.2) % Lymph % (Auto) 8.2 L (13.4-35.0) % [place] # (Auto) 0.9 H (0.0-0.8) K/mm3 Seg Neutrophils % 85.0 H (40.0-70.0) % Seg Neuts % (Manual) (40.0-70.0) % Lymphocytes % (Manual) (13.4-35.0) % Seg Neutrophils # 12.1 H (1.8-7.7) K/mm3 Seg Neutrophils # Man (1.8-7.7) K/mm3 Lymphocytes # (Manual) (1.2-5.4) K/mm3 D-Dimer (0-234) ng/mlDDU ABG pO2 (80.0-90.0) mm Hg ABG O2 Saturation (95.0-99.0) % Oxyhemoglobin (95.0-99.0) % Sodium 136 L (137-145) mmol/L BUN 22 H (9-20) mg/dL Glucose 115 H (75-100) mg/dL Ferritin 1074.0 H (30.0-300.0) ng/mL Lactate Dehydrogenase (91-180) units/L C-Reactive Protein (0.00-1.30) mg/dL Albumin 3.8 L (3.9-5) g/dL 03/30/20 03/30/20 03/30/20 Range/Units 21:31 21:58 23:00 WBC (4.5-11.0) K/mm3 MCHC (32-34) % RDW (13.2-15.2) % Lymph % (Auto) (13.4-35.0) % [place] # (Auto) (0.0-0.8) K/mm3 Seg Neutrophils % (40.0-70.0) % Seg Neuts % (Manual) (40.0-70.0) % Lymphocytes % (Manual) (13.4-35.0) % Seg Neutrophils # (1.8-7.7) K/mm3 Seg Neutrophils # Man (1.8-7.7) K/mm3 Lymphocytes # (Manual) (1.2-5.4) K/mm3 D-Dimer 397.35 H (0-234) ng/mlDDU ABG pO2 63.3 L (80.0-90.0) mm Hg ABG O2 Saturation 94.0 L (95.0-99.0) % Oxyhemoglobin 92.1 L (95.0-99.0) % Sodium (137-145) mmol/L BUN (9-20) mg/dL Glucose (75-100) mg/dL Ferritin (30.0-300.0) ng/mL Lactate Dehydrogenase 266 H (91-180) units/L C-Reactive Protein (0.00-1.30) mg/dL Albumin (3.9-5) g/dL 03/31/20 03/31/20 03/31/20 Range/Units 00:49 00:49 00:49 WBC (4.5-11.0) K/mm3 MCHC (32-34) % RDW (13.2-15.2) % Lymph % (Auto) (13.4-35.0) % [place] # (Auto) (0.0-0.8) K/mm3 Seg Neutrophils % (40.0-70.0) % Seg Neuts % (Manual) (40.0-70.0) % Lymphocytes % (Manual) (13.4-35.0) % Seg Neutrophils # (1.8-7.7) K/mm3 Seg Neutrophils # Man (1.8-7.7) K/mm3 Lymphocytes # (Manual) (1.2-5.4) K/mm3 D-Dimer 324.85 H (0-234) ng/mlDDU ABG pO2 (80.0-90.0) mm Hg ABG O2 Saturation (95.0-99.0) % Oxyhemoglobin (95.0-99.0) % Sodium (137-145) mmol/L BUN (9-20) mg/dL Glucose 144 H (75-100) mg/dL Ferritin 1014.0 H (30.0-300.0) ng/mL Lactate Dehydrogenase (91-180) units/L C-Reactive Protein 13.80 H (0.00-1.30) mg/dL Albumin (3.9-5) g/dL 03/31/20 03/31/20 Range/Units 05:13 05:13 WBC 14.0 H (4.5-11.0) K/mm3 MCHC 36 H (32-34) % RDW 12.4 L (13.2-15.2) % Lymph % (Auto) (13.4-35.0) % [place] # (Auto) (0.0-0.8) K/mm3 Seg Neutrophils % (40.0-70.0) % Seg Neuts % (Manual) 95.0 H (40.0-70.0) % Lymphocytes % (Manual) 3.0 L (13.4-35.0) % Seg Neutrophils # (1.8-7.7) K/mm3 Seg Neutrophils # Man 13.3 H (1.8-7.7) K/mm3 Lymphocytes # (Manual) 0.4 L (1.2-5.4) K/mm3 D-Dimer (0-234) ng/mlDDU ABG pO2 (80.0-90.0) mm Hg ABG O2 Saturation (95.0-99.0) % Oxyhemoglobin (95.0-99.0) % Sodium (137-145) mmol/L BUN 21 H (9-20) mg/dL Glucose 185 H (75-100) mg/dL Ferritin (30.0-300.0) ng/mL Lactate Dehydrogenase (91-180) units/L C-Reactive Protein (0.00-1.30) mg/dL Albumin (3.9-5) g/dL Assessment and Plan Cultures: None A/P: 69-year-old man past medical history hypertension, BPH, bladder cancer, colon cancer admitted with COVID-19 #Acute hypoxemic respiratory failure: Likely secondary to COVID-19 infection. Currently on room air #Severe COVID-19 pneumonia: Patient presented with a week of symptoms, chest x- ray with diffuse bilateral infiltrates. No PE on CT. Procalcitonin normal #Obesity: Associated with worse COVID-19 outcomes #Leukocytosis: Likely secondary to outpatient steroids Recs: -Dexamethasone 6 mg IV/PO daily for 10 days -Patient appears to be saturating well the present time, however if the patient becomes hypoxic and requiring greater than or equal to 2 L oxygen recommend starting remdesivir -Obtain daily inflammatory markers - ferritin, Ddimer, CRP, LDH -Stop antibiotics as normal procalcitonin. Leukocytosis likely secondary to outpatient prednisone -Anticoagulation per hospital protocol -Proning as able Thank you for the consult, we will continue to follow. Allie Culp MD [facility] O: [phone] F: [phone]
--- NOTE | 2020-03-31 15:08 | Progress Note ---
Assessment and Plan - Patient Problems (1) COVID-19 Current Visit: Yes Status: Acute Plan to address problem: ID note reviewed and appreciated Antibiotics discontinued as procalcitonin was normal Continue steroids Monitor oxygen status (2) BPH (benign prostatic hyperplasia) Current Visit: Yes Status: Chronic Qualifiers: Lower urinary tract symptom presence: unspecified whether lower urinary tract symptoms present Qualified Code(s): N40.0 - Benign prostatic hyperplasia without lower urinary tract symptoms Plan to address problem: Continue home medication (3) Hypertension Current Visit: Yes Status: Chronic Qualifiers: Hypertension type: essential hypertension Qualified Code(s): I10 - Essential (primary) hypertension Plan to address problem: We will start amlodipine 2.5 but hold off on irbesartan Subjective Date of service: 03/31/20 Interval history: 69-year-old male with known history of hypertension and BPH presenting to the emergency room today complaining of worsening shortness of breath. Patient was diagnosed with Covid less than a week ago and was prescribed Z-Bon, prednisone and Tessalon pearles. He was encouraged to report to the emergency room if his condition gets worse. Patient indicates he has been having increased shortness of breath, cough, fever, difficulty breathing and headache. He has also had loss of taste and smell. Upon arrival in the emergency room his O2 saturation was 91%. Work-up today, chest x-ray reveals:Mild right basilar opacities possibly representing aspiration or developing pneumonia. He has a leukocytosis of 14. Patient has been placed on empiric IV antibiotics. He has also been placed on isolation precautions for COVID-19. / patient is alert and oriented and resting in the bed comfortably, states he feels better and he feels less tired and less short of breath today States he was diagnosed with Covid 19 infection last Thursday. Lab results reviewed. ID note reviewed Objective - Constitutional Vitals: Vital Signs - 12hr 03/31/20 03/31/20 03/31/20 03:16 03:30 03:46 Pulse Rate 57 L 55 L 54 L Respiratory 19 17 16 Rate Blood Pressure 127/66 127/66 129/68 O2 Sat by Pulse 98 99 99 Oximetry 03/31/20 03/31/20 03/31/20 04:00 04:16 04:30 Pulse Rate 52 L 56 L Respiratory 17 17 15 Rate Blood Pressure 129/68 129/68 129/68 O2 Sat by Pulse 99 96 98 Oximetry 03/31/20 03/31/20 03/31/20 04:46 05:00 05:16 Pulse Rate 54 L 53 L 55 L Respiratory 16 16 14 Rate Blood Pressure 139/77 139/77 117/60 O2 Sat by Pulse 97 97 98 Oximetry 03/31/20 03/31/20 03/31/20 05:30 05:46 06:00 Pulse Rate 55 L 53 L 52 L Respiratory 16 17 17 Rate Blood Pressure 117/60 142/77 142/77 O2 Sat by Pulse 97 97 97 Oximetry 03/31/20 03/31/20 03/31/20 06:16 06:30 06:46 Pulse Rate 53 L 53 L Respiratory 16 15 17 Rate Blood Pressure 131/68 131/68 122/78 O2 Sat by Pulse 98 97 94 Oximetry 03/31/20 03/31/20 03/31/20 07:00 07:30 08:00 Pulse Rate 54 L 66 80 Respiratory 13 17 18 Rate Blood Pressure 122/78 128/93 127/79 O2 Sat by Pulse 98 96 94 Oximetry 03/31/20 03/31/20 03/31/20 08:30 09:00 10:00 Pulse Rate 63 60 Respiratory 16 14 Rate Blood Pressure 121/60 129/60 139/68 O2 Sat by Pulse 98 96 98 Oximetry 03/31/20 03/31/20 11:00 12:00 Pulse Rate Respiratory Rate Blood Pressure 148/64 131/66 O2 Sat by Pulse 99 98 Oximetry General appearance: Present: no acute distress, well-nourished - EENT Eyes: PERRL, EOM intact ENT: hearing intact - Neck Neck: supple, normal ROM, no masses or JVD - Respiratory Respiratory effort: normal Respiratory: bilateral: CTA - Cardiovascular Rhythm: regular Heart Sounds: Present: S1 & S2 Extremities: No edema - Gastrointestinal General gastrointestinal: Present: soft, non-tender Rectal Exam: deferred - Genitourinary Male genitourinary: deferred - Integumentary Integumentary: clear - Musculoskeletal Musculoskeletal: strength equal bilaterally - Neurologic Neurologic: no focal deficits - Psychiatric Psychiatric: appropriate mood/affect - Labs CBC & Chem 7: 03/31/20 05:13 03/31/20 05:13 Labs: Abnormal lab results 03/30/20 03/30/20 03/30/20 Range/Units 21:02 21:02 21:31 WBC 14.3 H (4.5-11.0) K/mm3 MCHC (32-34) % RDW 12.6 L (13.2-15.2) % Lymph % (Auto) 8.2 L (13.4-35.0) % [place] # (Auto) 0.9 H (0.0-0.8) K/mm3 Seg Neutrophils % 85.0 H (40.0-70.0) % Seg Neuts % (Manual) (40.0-70.0) % Lymphocytes % (Manual) (13.4-35.0) % Seg Neutrophils # 12.1 H (1.8-7.7) K/mm3 Seg Neutrophils # Man (1.8-7.7) K/mm3 Lymphocytes # (Manual) (1.2-5.4) K/mm3 D-Dimer (0-234) ng/mlDDU ABG pO2 (80.0-90.0) mm Hg ABG O2 Saturation (95.0-99.0) % Oxyhemoglobin (95.0-99.0) % Sodium 136 L (137-145) mmol/L BUN 22 H (9-20) mg/dL Glucose 115 H (75-100) mg/dL Ferritin 1074.0 H (30.0-300.0) ng/mL Lactate Dehydrogenase (91-180) units/L C-Reactive Protein (0.00-1.30) mg/dL Albumin 3.8 L (3.9-5) g/dL 03/30/20 03/30/20 03/30/20 Range/Units 21:31 21:58 23:00 WBC (4.5-11.0) K/mm3 MCHC (32-34) % RDW (13.2-15.2) % Lymph % (Auto) (13.4-35.0) % [place] # (Auto) (0.0-0.8) K/mm3 Seg Neutrophils % (40.0-70.0) % Seg Neuts % (Manual) (40.0-70.0) % Lymphocytes % (Manual) (13.4-35.0) % Seg Neutrophils # (1.8-7.7) K/mm3 Seg Neutrophils # Man (1.8-7.7) K/mm3 Lymphocytes # (Manual) (1.2-5.4) K/mm3 D-Dimer 397.35 H (0-234) ng/mlDDU ABG pO2 63.3 L (80.0-90.0) mm Hg ABG O2 Saturation 94.0 L (95.0-99.0) % Oxyhemoglobin 92.1 L (95.0-99.0) % Sodium (137-145) mmol/L BUN (9-20) mg/dL Glucose (75-100) mg/dL Ferritin (30.0-300.0) ng/mL Lactate Dehydrogenase 266 H (91-180) units/L C-Reactive Protein (0.00-1.30) mg/dL Albumin (3.9-5) g/dL 03/31/20 03/31/20 03/31/20 Range/Units 00:49 00:49 00:49 WBC (4.5-11.0) K/mm3 MCHC (32-34) % RDW (13.2-15.2) % Lymph % (Auto) (13.4-35.0) % [place] # (Auto) (0.0-0.8) K/mm3 Seg Neutrophils % (40.0-70.0) % Seg Neuts % (Manual) (40.0-70.0) % Lymphocytes % (Manual) (13.4-35.0) % Seg Neutrophils # (1.8-7.7) K/mm3 Seg Neutrophils # Man (1.8-7.7) K/mm3 Lymphocytes # (Manual) (1.2-5.4) K/mm3 D-Dimer 324.85 H (0-234) ng/mlDDU ABG pO2 (80.0-90.0) mm Hg ABG O2 Saturation (95.0-99.0) % Oxyhemoglobin (95.0-99.0) % Sodium (137-145) mmol/L BUN (9-20) mg/dL Glucose 144 H (75-100) mg/dL Ferritin 1014.0 H (30.0-300.0) ng/mL Lactate Dehydrogenase (91-180) units/L C-Reactive Protein 13.80 H (0.00-1.30) mg/dL Albumin (3.9-5) g/dL 03/31/20 03/31/20 Range/Units 05:13 05:13 WBC 14.0 H (4.5-11.0) K/mm3 MCHC 36 H (32-34) % RDW 12.4 L (13.2-15.2) % Lymph % (Auto) (13.4-35.0) % [place] # (Auto) (0.0-0.8) K/mm3 Seg Neutrophils % (40.0-70.0) % Seg Neuts % (Manual) 95.0 H (40.0-70.0) % Lymphocytes % (Manual) 3.0 L (13.4-35.0) % Seg Neutrophils # (1.8-7.7) K/mm3 Seg Neutrophils # Man 13.3 H (1.8-7.7) K/mm3 Lymphocytes # (Manual) 0.4 L (1.2-5.4) K/mm3 D-Dimer (0-234) ng/mlDDU ABG pO2 (80.0-90.0) mm Hg ABG O2 Saturation (95.0-99.0) % Oxyhemoglobin (95.0-99.0) % Sodium (137-145) mmol/L BUN 21 H (9-20) mg/dL Glucose 185 H (75-100) mg/dL Ferritin (30.0-300.0) ng/mL Lactate Dehydrogenase (91-180) units/L C-Reactive Protein (0.00-1.30) mg/dL Albumin (3.9-5) g/dL HEART Score - HEART Score Troponin: Troponin T < 0.010 ng/mL (0.00-0.029) 03/30/20 21:02
[2020-03-31] MEDS: amLODIPine 5 MG TAB PO SCH (15:52)
[2020-03-31] MEDS ORDERED: ALBUTEROL 2.5 MG/3 ML NEBU IH PRN (20:42)
[2020-03-31] MEDS ORDERED: AZITHROMYCIN 250 MG TAB PO SCH (22:00)
[2020-03-31] MEDS ORDERED: AZITHROMYCIN 500 MG in SODIUM CHLORIDE 0.9% 250ML 250 ML IV SCH (22:00)
[2020-03-31] MEDS: ACETAMINOPHEN 325 MG TAB PO PRN (23:36)
[2020-03-31] MEDS: ENOXAPARIN 40 MG/0.4 ML INJ SUB-Q SCH (23:37)
[2020-04-01] MEDS: DEXAMETHASONE 2 MG TAB PO SCH (11:10)
[2020-04-01] MEDS: TAMSULOSIN 0.4 MG CAP PO SCH (11:10)
[2020-04-01] MEDS: FINASTERIDE 5 MG TAB PO SCH (11:10)
[2020-04-01] MEDS: amLODIPine 5 MG TAB PO SCH (11:20)
[2020-04-01] MEDS: ACETAMINOPHEN 325 MG TAB PO PRN (11:23)
--- NOTE | 2020-04-01 13:52 | Progress Note ---
Assessment and Plan - Patient Problems (1) COVID-19 Current Visit: Yes Status: Acute (2) BPH (benign prostatic hyperplasia) Current Visit: Yes Status: Chronic Qualifiers: Lower urinary tract symptom presence: unspecified whether lower urinary tract symptoms present Qualified Code(s): N40.0 - Benign prostatic hyperplasia without lower urinary tract symptoms (3) Hypertension Current Visit: Yes Status: Chronic Qualifiers: Hypertension type: essential hypertension Qualified Code(s): I10 - Essential (primary) hypertension Subjective Date of service: 04/01/20 Interval history: 69-year-old male with known history of hypertension and BPH presenting to the emergency room today complaining of worsening shortness of breath. Patient was diagnosed with Covid less than a week ago and was prescribed Z-Bon, prednisone and Tessalon pearles. He was encouraged to report to the emergency room if his condition gets worse. Patient indicates he has been having increased shortness of breath, cough, fever, difficulty breathing and headache. He has also had loss of taste and smell. Upon arrival in the emergency room his O2 saturation was 91%. Work-up today, chest x-ray reveals:Mild right basilar opacities possibly representing aspiration or developing pneumonia. He has a leukocytosis of 14. Patient has been placed on empiric IV antibiotics. He has also been placed on isolation precautions for COVID-19. 1/ patient is alert and oriented and resting in the bed comfortably, states he feels better and he feels less tired and less short of breath today States he was diagnosed with Covid 19 infection last Thursday. Lab results reviewed. ID note reviewed / remains febrile, temp 100.5 this morning, c/o productive cough. no other complaints. denies CP/sob/f/c. A/P: - Patient Problems (1) COVID-19 Current Visit: Yes Status: Acute Plan to address problem: ID note reviewed and appreciated Antibiotics discontinued as procalcitonin was normal Continue steroids Monitor oxygen status (2) BPH (benign prostatic hyperplasia) Current Visit: Yes Status: Chronic Qualifiers: Lower urinary tract symptom presence: unspecified whether lower urinary tract symptoms present Qualified Code(s): N40.0 - Benign prostatic hyperplasia without lower urinary tract symptoms Plan to address problem: Continue home medication (3) Hypertension Current Visit: Yes Status: Chronic Qualifiers: Hypertension type: essential hypertension Qualified Code(s): I10 - Essential (primary) hypertension Plan to address problem: We will start amlodipine 2.5 but hold off on irbesartan Leucocytosis: 2/2 steroids Objective - Constitutional Vitals: Vital Signs - 12hr 04/01/20 04/01/20 04/01/20 04:10 05:03 08:47 Temperature 99.1 F Pulse Rate Respiratory 20 Rate Blood Pressure 112/59 O2 Sat by Pulse 100 97 Oximetry 04/01/20 04/01/20 04/01/20 11:16 11:17 11:20 Temperature 100.5 F H Pulse Rate 80 77 81 Respiratory 20 Rate Blood Pressure 137/74 O2 Sat by Pulse 95 94 Oximetry General appearance: Present: no acute distress - EENT Eyes: PERRL, EOM intact ENT: hearing intact - Neck Neck: supple, normal ROM - Respiratory Respiratory effort: normal Respiratory: bilateral: CTA - Cardiovascular Rhythm: regular Heart Sounds: Present: S1 & S2 Extremities: No edema - Gastrointestinal General gastrointestinal: Present: soft, non-tender Rectal Exam: deferred - Genitourinary Male genitourinary: deferred - Integumentary Integumentary: clear - Musculoskeletal Musculoskeletal: strength equal bilaterally - Neurologic Neurologic: no focal deficits - Psychiatric Psychiatric: appropriate mood/affect - Labs CBC & Chem 7: 03/31/20 05:13 03/31/20 05:13 Labs: Abnormal lab results 03/31/20 03/31/20 Range/Units 08:55 22:57 POC Glucose 111 H (70-105) mg/dL Coronavirus (PCR) Positive A (Negative) HEART Score - HEART Score Troponin: Troponin T < 0.010 ng/mL (0.00-0.029) 03/30/20 21:02
[2020-04-01] MEDS: guaiFENesin DM 200/20 MG ORAL LIQD 10 ML PO SCH (22:03)
[2020-04-01] MEDS: ENOXAPARIN 40 MG/0.4 ML INJ SUB-Q SCH (22:03)
[2020-04-02] MEDS: guaiFENesin DM 200/20 MG ORAL LIQD 10 ML PO SCH ×2 (03:00→13:35)
[2020-04-02] MEDS: amLODIPine 5 MG TAB PO SCH (10:36)
[2020-04-02] MEDS: DEXAMETHASONE 2 MG TAB PO SCH (10:36)
[2020-04-02] MEDS: TAMSULOSIN 0.4 MG CAP PO SCH (10:37)
[2020-04-02] MEDS: FINASTERIDE 5 MG TAB PO SCH (10:37)
--- NOTE | 2020-04-02 12:13 | Discharge Summary ---
Providers - Providers Date of Admission: 03/30/20 22:54 Date of discharge: 04/02/20 Attending physician: ELIJAH BEAN 03/30/20 23:00 Consult to Physician [CONS] Urgent Comment: Consulting Provider: PINKY STERLING Physician Instructions: Reason For Exam: [id number] Primary care physician: YESSI RAMIREZ Hospitalization Condition: Stable Hospital course: Interval history: 69-year-old male with known history of hypertension and BPH presenting to the emergency room today complaining of worsening shortness of breath. Patient was diagnosed with Covid less than a week ago and was prescribed Z-Bon, prednisone and Tessalon pearles. He was encouraged to report to the emergency room if his condition gets worse. Patient indicates he has been having increased shortness of breath, cough, fever, difficulty breathing and headache. He has also had loss of taste and smell. Upon arrival in the emergency room his O2 saturation was 91%. Work-up today, chest x-ray reveals:Mild right basilar opacities possibly representing aspiration or developing pneumonia. He has a leukocytosis of 14. Patient has been placed on empiric IV antibiotics. He has also been placed on isolation precautions for COVID-19. / patient is alert and oriented and resting in the bed comfortably, states he feels better and he feels less tired and less short of breath today States he was diagnosed with Covid 19 infection last Thursday. Lab results reviewed. ID note reviewed 04/01 remains febrile, temp 100.5 this morning, c/o productive cough. no other complaints. denies CP/sob/f/c. 04/02 patient offers no complaints and has been afebrile , cough is improving and has mild cough with mucoid sputum. He denies any chest pain or shortness of breath 6-minute walk on room air was 94%. Patient is medically stable for discharge. Self quarantine for 10 days A/P: - Patient Problems (1) COVID-19 Current Visit: Yes Status: Acute Plan to address problem: ID note reviewed and appreciated Not a candidate for remdesivir per ID recommendation Antibiotics discontinued as procalcitonin was normal Continue steroids stop date 04/10 (2) BPH (benign prostatic hyperplasia) Current Visit: Yes Status: Chronic Qualifiers: Lower urinary tract symptom presence: unspecified whether lower urinary tract symptoms present Qualified Code(s): N40.0 - Benign prostatic hyperplasia without lower urinary tract symptoms Plan to address problem: Continue home medication (3) Hypertension Current Visit: Yes Status: Chronic Qualifiers: Hypertension type: essential hypertension Qualified Code(s): I10 - Essential (primary) hypertension Plan to address problem: Continue amlodipine 2.5 mg daily Fever Likely secondary to acute bronchitis versus COVID-19 pneumonia Resolved Disposition: - TO HOME OR SELFCARE Time spent for discharge: 38 min - Discharge Diagnoses (1) COVID-19 Status: Acute (2) BPH (benign prostatic hyperplasia) Status: Chronic Qualifiers: Lower urinary tract symptom presence: unspecified whether lower urinary tract symptoms present Qualified Code(s): N40.0 - Benign prostatic hyperplasia without lower urinary tract symptoms (3) Hypertension Status: Chronic Qualifiers: Hypertension type: essential hypertension Qualified Code(s): I10 - Essential (primary) hypertension Core Measure Documentation - Palliative Care Palliative Care/ Comfort Measures: Not Applicable - Core Measures Any of the following diagnoses?: none Exam - Constitutional Vitals: Temp Pulse Resp BP Pulse Ox 98.4 F 58 L 16 122/68 96 04/02/20 04:39 04/02/20 04:39 04/02/20 04:39 04/02/20 04:39 04/02/20 10:41 General appearance: Present: no acute distress - EENT Eyes: Present: PERRL, EOM intact ENT: hearing intact - Neck Neck: Present: supple, normal ROM - Respiratory Respiratory effort: normal - Cardiovascular Rhythm: regular Heart Sounds: Present: S1 & S2 - Extremities Extremities: No edema - Abdominal General gastrointestinal: Present: soft, non-tender - Integumentary Integumentary: Present: clear - Musculoskeletal Musculoskeletal: strength equal bilaterally - Psychiatric Psychiatric: appropriate mood/affect - Neurologic Neurologic: no focal deficits Plan Activity: advance as tolerated (Self quarantine for 10 days) Weight Bearing Status: Full Weight Bearing Diet: regular, low fat, low salt Additional Instructions: Self quarantine for 10 days Follow up with: YESSI RAMIREZ MD [Primary Care Provider] - 3-5 Days Prescriptions: amLODIPine 2.5 mg PO DAILY #30 tablet dexAMETHasone [Decadron] 6 mg PO Q24HR #8 tablet
[2020-04-02 12:14] VITALS: BP 132/75
--- NOTE | 2020-04-02 12:35 | Progress Note ---
Assessment and Plan Cultures: None A/P: 69-year-old man past medical history hypertension, BPH, bladder cancer, colon cancer admitted with COVID-19 #Acute hypoxemic respiratory failure: Likely secondary to COVID-19 infection. Currently on room air #Severe COVID-19 pneumonia: Patient presented with a week of symptoms, chest x- ray with diffuse bilateral infiltrates. No PE on CT. Procalcitonin normal #Obesity: Associated with worse COVID-19 outcomes #Leukocytosis: Likely secondary to outpatient steroids Recs: -Dexamethasone 6 mg IV/PO daily for 10 days -Patient appears to be saturating well the present time, however if the patient becomes hypoxic and requiring greater than or equal to 2 L oxygen recommend starting remdesivir -Obtain daily inflammatory markers - ferritin, Ddimer, CRP, LDH -Anticoagulation per hospital protocol -Proning as able -Okay for discharge whenever he is stable from a respiratory standpoint. Thank you for the consult, we will continue to follow. Allie Culp MD [facility] O: [phone] F: [phone] Subjective Date of service: 04/02/20 Interval history: Afebrile over last 24 hours. No acute changes at present. 2 L nasal cannula. Objective - Exam Narrative Exam: Physical exam deferred due to PPE conservation strategy. Please refer to primary team's note. - Constitutional Vitals: Vital Signs Temp Pulse Resp BP Pulse Ox 97.4 F L 64 20 132/75 94 04/02/20 11:32 04/02/20 11:32 04/02/20 11:32 04/02/20 11:32 04/02/20 11:32 Temperature -Last 24 Hours Temperature 97.4 F Temperature 98.4 F Temperature 98.1 F - Labs CBC & Chem 7: 03/31/20 05:13 03/31/20 05:13 Labs: Abnormal lab results 03/31/20 Range/Units 08:55 Coronavirus (PCR) Positive A (Negative)
== END 2020-04-02 14:05 | disposition home or self-care (01) | DRG 177 ==
LOC: ED 20:44 → 3A 22:54
PROVIDERS: ADMIT Internal Medicine Geriatric Medicine; ATTEND Internal Medicine
PROC: 4A033R1 Measurement of Arterial Saturation, Peripheral, Percutaneous Approach (ICD-10-PCS; principal; 2020-03-30)
DX: U07.1 COVID-19 (principal); J96.01 Acute respiratory failure with hypoxia; J12.82 Pneumonia due to coronavirus disease 2019; I10 Essential (primary) hypertension; E66.9 Obesity, unspecified; N40.0 Benign prostatic hyperplasia without lower urinary tract symptoms; Z87.891 Personal history of nicotine dependence; Z79.899 Other long term (current) drug therapy; Z68.35 Body mass index [BMI] 35.0-35.9, adult
CPT/HCPCS: 36415; 71046; 71275; 80048; 80053; 82140; 82728; 82803; 82947; 82962; 83615; 83880; 84145; 84484; 85007; 85025; 85379; 85610; 86140; 90471; 93005; 94644; 94760; G0378; J0456; J0696; J1100; J1650; J7030; J7050; J8540; Q9967; U0003

== ENCOUNTER 2020-04-23 12:50 | Outpatient (CLI) | payer BC, MEDICARE | END 2020-04-23 12:51 | disposition home or self-care (01) | LOC: LAB 12:50 | PROVIDERS: ATTEND Urology | DX: R97.20 Elevated prostate specific antigen [PSA] (principal) | CPT/HCPCS: 36415; 84153 ==

== ENCOUNTER 2020-09-03 06:15 | Outpatient (CLI) | payer BC, MEDICARE ==
[2020-09-03 06:57] LABS: Alanine Aminotransferase 18 units/L (7-56); Albumin 4.6 g/dL (3.9-5); BUN/Creatinine Ratio 20; Blood Urea Nitrogen 18 mg/dL (9-20); Calcium 9.4 mg/dL (8.4-10.2); Chol/HDL Ratio 4.02 %; HDL Cholesterol 42 mg/dL (40-59); Hemolysis Index 2; LDL Cholesterol,Direct 121 mg/dL (50-130)
== END 2020-09-03 06:16 | disposition home or self-care (01) ==
LOC: LAB 06:15
PROVIDERS: ATTEND Family Medicine
DX: I10 Essential (primary) hypertension (principal); R73.03 Prediabetes; E78.5 Hyperlipidemia, unspecified
CPT/HCPCS: 36415; 80053; 80061; 83036; 84443

== ENCOUNTER 2020-09-04 10:12 | Outpatient (CLI) | payer BC ==
--- NOTE | 2020-09-04 12:24 | Ultrasound Report ---
ULTRASOUND SCROTUM INDICATION / CLINICAL INFORMATION: INFLAMMATORY DISORDERS. Enlarged scrotum, left. COMPARISON: None available. FINDINGS -- RIGHT: TESTIS: Size = 4.4 cm. - Appearance: No significant abnormality. - Cyst / Mass: None. - Color Doppler Flow: No significant abnormality. EPIDIDYMIS: Tiny epididymal head cyst measuring 3 mm. HYDROCELE: Small. VARICOCELE: None demonstrated. FINDINGS -- LEFT: TESTIS: Size = 4.2 cm. - Appearance: No significant abnormality. - Cyst / Mass: None. - Color Doppler Flow: No significant abnormality. EPIDIDYMIS: No significant abnormality. HYDROCELE: Moderate. VARICOCELE: None demonstrated. ADDITIONAL FINDINGS: None. IMPRESSION: 1. Moderate left hydrocele. No evidence of mass or torsion bilaterally. Scribed by: Alix Bhagat RDMS, RVT Scribed: 09/04/2020 10:50 AM Signer Name: Ashu Gama MD Signed: 09/04/2020 12:20 PM Workstation Name: [id number]
== END 2020-09-04 10:13 | disposition home or self-care (01) ==
LOC: US 10:12
PROVIDERS: ATTEND Family Medicine
DX: N43.2 Other hydrocele (principal); N50.3 Cyst of epididymis
CPT/HCPCS: 93975

== ENCOUNTER 2020-09-25 12:47 | Outpatient (CLI) | payer BC | END 2020-09-25 12:48 | disposition home or self-care (01) | LOC: LAB 12:47 | PROVIDERS: ATTEND Urology | DX: R97.20 Elevated prostate specific antigen [PSA] (principal) | CPT/HCPCS: 36415; 84153 ==